=== PATIENT | female | born 1945 | race Caucasian/White ===

== ENCOUNTER 2018-09-23 09:52 | Emergency (ER) | payer MEDICARE, OTHER ==
[2018-09-23 10:21] VITALS: BP 146/68
--- NOTE | 2018-09-23 10:28 | UC ---
Abdominal Pain Female HPI - HPI Summary HPI Summary: 73 year old female with h/o GERD, hiatal hernia presents with lower abdominal pain, emesis starting yesterday- initially bright red blood, then changed to coffee ground emesis. sour stomach feeling since last night. No fever, chills. Difficulty sleeping due to pain. No prior episodes, no h/o GI bleed. Patient is restless but attributes that to flare of restless leg. Patient's drove her here today and he is in the waiting room. - History of Current Complaint Chief Complaint: UCGI Stated Complaint: VOMITING Time Seen by Provider: 09/23/18 10:07 Hx Obtained From: Patient, Family/Digital Forensics Examiner - ?: No Onset/Duration: Sudden Onset, Lasting Days Timing: Constant Severity Initially: Moderate Severity Currently: Moderate Pain Intensity: 8 Pain Scale Used: 0-10 Numeric Location: Diffuse - lower abdomen Radiates to: LLQ, RLQ Character: Aching, Cramping Associated Signs and Symptoms: Positive: Nausea, Vomiting. Negative: Dizzy Allergies/Adverse Reactions: Allergies Allergy/AdvReac Type Severity Reaction Status Date / Time No Known Allergies Allergy Verified 09/23/18 10:13 Home Medications: Home Medications Adalimumab (NF) [Humira Pen (NF)] 40 mg SUBCUT Q14D 09/23/18 [History Confirmed 09/23/18] Ergocalciferol (Vitamin D2) [Vitamin D2] 50,000 unit PO MO 09/23/18 [History Confirmed 09/23/18] Omeprazole CAP (NF) [Prilosec CAP* 20 MG] 20 mg PO DAILY 09/23/18 [History Confirmed 09/23/18] Ondansetron ODT TAB* [Zofran 4 MG Odt TAB*] 4 mg PO ONCE 09/23/18 [History Confirmed 09/23/18] Ropinirole TAB* [Requip TAB*] 0.5 mg PO BEDTIME 09/23/18 [History Confirmed 08/08] PMH/Surg Hx/FS Hx/Imm Hx Previously Healthy: Yes - Surgical History Surgical History: None - Social History Alcohol Use: None Substance Use Type: None Smoking Status (MU): Never Smoked Tobacco Review of Systems All Other Systems Reviewed And Are Negative: Yes Constitutional: Positive: Negative Skin: Positive: Negative ENT: Positive: Negative Cardiovascular: Positive: Negative Gastrointestinal: Positive: Abdominal Pain, Vomiting, Nausea Is Patient Immunocompromised?: No Physical Exam Triage Information Reviewed: Yes Appearance: Well-Appearing, No Pain Distress, Well-Nourished Vital Signs: Initial Vital Signs Temp 98.2 F 09/23/18 10:07 Pulse 116 09/23/18 10:07 Resp 24 09/23/18 10:07 BP 146/68 09/23/18 10:07 Pulse Ox 94 09/23/18 10:07 Vital Signs Reviewed: Yes Eyes: Positive: Conjunctiva Clear Neck: Positive: Supple, Nontender, No Lymphadenopathy Respiratory: Positive: Chest non-tender, Lungs clear, Normal breath sounds, No respiratory distress, No accessory muscle use. Negative: Crackles, Rhonchi, Stridor, Wheezing Cardiovascular: Positive: No Murmur, Tachycardia Abdomen Description: Positive: No Organomegaly, Soft, Other: - tender b/l lower quads. Negative: CVA Tenderness (R), CVA Tenderness (L) Musculoskeletal Exam: Normal Neurological: Positive: Other: - anxious Abd Pain Female Course/Dx - Course Course Of Treatment: Due to patient symptoms, tachycardia, patient was educated that a more extensive work up should be completed and advised to go to ER. ambulance offered to patient, but she refused and will ride with . Will go directly to ER. SIgnout called over to Dr. Mckeon. - Differential Dx/Diagnosis Provider Diagnosis: Abdominal pain Discharge - Sign-Out/Discharge Documenting (check all that apply): Patient Departure All imaging exams completed and their final reports reviewed: No Studies - Discharge Plan Condition: Good Disposition: HOME Patient Education Materials: Acute Abdominal Pain (ED) Referrals: Jannet Washington MD [Primary Care Provider] - Additional Instructions: - Please go directed to ER for further evaluation - Billing Disposition and Condition Condition: GOOD Disposition: Home
== END 2018-09-23 10:31 | disposition home or self-care (01) ==
LOC: UCCORT 09:52
DX: R10.30 Lower abdominal pain, unspecified (principal); K21.9 Gastro-esophageal reflux disease without esophagitis; Z79.899 Other long term (current) drug therapy
CPT/HCPCS: 99202; G0463